=== PATIENT | male | born 1995 | race Caucasian/White ===

== ENCOUNTER 2017-11-12 02:48 | Inpatient (IN) | payer SELFPAY ==
[~2017-11-12] VITALS: Ht 165.1 cm; Wt 78.0 kg
[2017-11-12 03:12] LABS: HEMATOCRIT 46.2 % (42.0-52.0); HEMOGLOBIN 15.9 g/dl (13.5-18.0); MEAN CELL VOLUME 87 fl (80.0-100.0); MEAN CORPUSCULAR HEMOGLOBIN 30 pg (27.0-31.0); MEAN CORPUSCULAR HGB CONC 34 g/dl (33.0-37.0); MEAN PLATELET VOLUME 11.7 fl (7.4-10.4); PLATELET COUNT 212 K/mm3 (130-400); RED BLOOD COUNT 5.29 M/mm3 (4.20-5.60); REDCELL DISTRIBUTION WIDTH-CV 12.5 % (11.5-14.5)
[2017-11-12 03:21] LABS: ALBUMIN 4.3 gm/dL (3.5-5.0); BILIRUBIN,TOTAL 0.3 mg/dL (0.0-1.0); CALCIUM 8.6 mg/dL (8.4-10.2); CREATININE, serum 0.82 mg/dL (0.66-1.25); POTASSIUM 3.8 mmol/L (3.4-5.0); TOTAL PROTEIN 7.7 gm/dL (6.4-8.2)
[2017-11-12 03:30] LABS: BAND 5 % (0-10); EOSINOPHIL 2 % (0-4); LYMPHOCYTE 33 % (20.0-51.0); METAMYELOCYTE 1 % (0-0); NEUTROPHILS 51 % (42.0-75.2); PLATELET ESTIMATE NORMAL (NORMAL)
[2017-11-12 08:13] VITALS: BP 132/56; PULSE 108; TEMP 99.3
[2017-11-12 12:16] VITALS: BP 149/74; PULSE 104; TEMP 98.4
[2017-11-12 15:32] VITALS: BP 134/67; PULSE 89; TEMP 98.4
[2017-11-12 19:35] VITALS: BP 147/69; PULSE 90; TEMP 98.3
[2017-11-12 23:28] VITALS: BP 130/69; PULSE 77; TEMP 98.5
[2017-11-13 03:52] VITALS: BP 109/87; PULSE 84; TEMP 98.2
[2017-11-13 07:10] LABS: HEMATOCRIT 43.4 % (42.0-52.0); HEMOGLOBIN 14.6 g/dl (13.5-18.0); MEAN CELL VOLUME 89 fl (80.0-100.0); MEAN CORPUSCULAR HEMOGLOBIN 30 pg (27.0-31.0); MEAN CORPUSCULAR HGB CONC 34 g/dl (33.0-37.0); PLATELET COUNT 168 K/mm3 (130-400); RED BLOOD COUNT 4.88 M/mm3 (4.20-5.60); REDCELL DISTRIBUTION WIDTH-CV 12.8 % (11.5-14.5)
[2017-11-13 07:16] VITALS: BP 159/89; PULSE 87; TEMP 98.3
[2017-11-13 07:28] LABS: CALCIUM 8.7 mg/dL (8.4-10.2); CREATININE, serum 0.75 mg/dL (0.66-1.25); POTASSIUM 3.9 mmol/L (3.4-5.0)
[2017-11-13] MEDS ORDERED: NORCO 325 MG-7.1 TAB PO (11:19)
== END 2017-11-13 14:10 | disposition home or self-care (01) | DRG 536 ==
LOC: COL.ER 02:48 → SURG 06:18
PROVIDERS: Emergency Medicine; Surgery
DX: S32.415A Nondisplaced fracture of anterior wall of left acetabulum, initial encounter for closed fracture (principal); S32.19XA Other fracture of sacrum, initial encounter for closed fracture; V43.62XA Car passenger injured in collision with other type car in traffic accident, initial encounter; Y92.410 Unspecified street and highway as the place of occurrence of the external cause
CPT/HCPCS: J1170; J7030; Q9967

== ENCOUNTER 2018-11-04 11:16 | Emergency (ER) | payer SELFPAY ==
[~2018-11-04 11:16] MED LIST: NORCO 325 MG-7.1 TAB PO
[2018-11-04 11:20] VITALS: TEMP 97.8
[2018-11-04 12:10] LABS: LIPASE 75 U/L (23-300)
[2018-11-04 12:40] LABS: TROPONIN-I < 0.012 ng/mL (0.000-0.035)
[2018-11-04] MEDS ORDERED: FLEXERIL 1010 MG/TAB PO (12:50)
[2018-11-04] MEDS ORDERED: MEDROL 4MG DOSPA4 MG PO (13:00)
[2018-11-04 13:05] VITALS: BP 116/76; PULSE 54
== END 2018-11-04 13:11 | disposition home or self-care (01) ==
LOC: COL.ER 11:16
PROVIDERS: Physician Assistant
DX: S16.1XXA Strain of muscle, fascia and tendon at neck level, initial encounter (principal); S29.011A Strain of muscle and tendon of front wall of thorax, initial encounter; F17.210 Nicotine dependence, cigarettes, uncomplicated
CPT/HCPCS: J1885